=== PATIENT | female | born 1950 | race Caucasian/White ===

== ENCOUNTER 2022-03-29 07:29 | Day surgery (SDC) | payer MEDICARE, OTHER ==
[2022-03-27 15:12] LABS: COVID AG,FIA SOURCE NASAL SWAB
[~2022-03-29] VITALS: Ht 172.7 cm; Wt 75.0 kg
[~2022-03-29 07:29] MED LIST: CYCLOPENTOLATE HCL 1% 2 ML OPHTHALMIC SOLUTION ONE; KETOROLAC TROMETHAMINE 0.5% 5 ML OPHTHALMIC SOLUTION ONE; LOSA-382 PO; MONT-40 PO; PANT40TA54 PO; PHENYLEPHRINE HCL 2.5% 2 ML OPHTHALMIC SOLUTION ONE; RINGERS SOLUTION,LACTATED 500 ML IV ONE; ROSU10TA72 PO; TROPICAMIDE 1% 2 ML OPHTHALMIC SOLUTION ONE; [UNRECOGNIZED DRUG - CODE] TP
[2022-03-29] MEDS ORDERED: 0.9% SODIUM CHLORIDE 10 ML VIAL IRRIG ONE (07:30)
[2022-03-29] MEDS ORDERED: MIDAZOLAM HCL 2 MG/2 ML VIAL IVP ONE (07:30)
[2022-03-29] MEDS ORDERED: EPINEPHrine 1:1,000 [1 MG/ML] VIAL ET ONE (07:30)
[2022-03-29] MEDS ORDERED: METOPROLOL TARTRATE 5 MG/5 ML VIAL IVP ONE (07:30)
[2022-03-29] MEDS ORDERED: HYALURONATE SOD 8.5MG/0.85ML 10 MG/ML SYRINGE IO ONE (07:30)
[2022-03-29] MEDS ORDERED: BALANCED SALT 15 ML OPHTHALMIC IRRIG.SOLN IO ONE (07:30)
[2022-03-29] MEDS ORDERED: CHONDR SULF A SOD/HYALURONATE 1.05 ML KIT IO ONE (07:30)
[2022-03-29] MEDS ORDERED: POVIDONE-IODINE 5% 30 ML OPHTHALMIC SOLUTION OD ONE (07:30)
[2022-03-29] MEDS ORDERED: FentaNYL CITRATE PF 100 MCG/2 ML VIAL IVP ONE (07:30)
[2022-03-29] MEDS ORDERED: TETRACAINE HCL/PF 0.5% 4 ML OPHTHALMIC SOLUTION OD ONE (07:30)
[2022-03-29] MEDS ORDERED: NEOMYCIN/POLYMYXIN B/DEXAMETH 3.5 GM OPHTHALMIC OINTMENT OD ONE (07:30)
[2022-03-29] MEDS ORDERED: ACETYLCHOLINE CHLORIDE 1 EA INTRAOCULAR SOLUTION KIT IO ONE (07:30)
[2022-03-29] MEDS ORDERED: MethylPREDNISolone SOD SUCC 40 MG/ML VIAL IVP ONE (07:30)
[2022-03-29] MEDS ORDERED: AcetaZOLAMIDE SODIUM 500 MG VIAL IVP ONE (07:30)
[2022-03-29] MEDS ORDERED: LIDOCAINE/PF 1% 2 ML VIAL CAUDAL ONE (07:30)
[2022-03-29] MEDS ORDERED: HYALURONATE SOD/CHONDROITIN SOD 0.5 ML VIAL IO ONE (07:30)
[2022-03-29] MEDS: PHENYLEPHRINE HCL 2.5% 2 ML OPHTHALMIC SOLUTION OD SCH ×3 (08:19→08:34)
[2022-03-29] MEDS: CYCLOPENTOLATE HCL 1% 2 ML OPHTHALMIC SOLUTION OD SCH ×3 (08:19→08:33)
[2022-03-29] MEDS: KETOROLAC TROMETHAMINE 0.5% 5 ML OPHTHALMIC SOLUTION OD SCH ×3 (08:19→08:33)
[2022-03-29] MEDS: TROPICAMIDE 1% 2 ML OPHTHALMIC SOLUTION OD SCH ×3 (08:19→08:33)
[2022-03-29] MEDS ORDERED: RINGERS SOLUTION,LACTATED 500 ML IV ONE (10:00)
== END 2022-03-29 12:30 | disposition home or self-care (01) ==
LOC: SURGERY 07:29
PROVIDERS: ATTEND Ophthalmology
DX: E11.36 Type 2 diabetes mellitus with diabetic cataract (principal); H25.12 Age-related nuclear cataract, left eye; E78.00 Pure hypercholesterolemia, unspecified; Z88.0 Allergy status to penicillin; Z98.890 Other specified postprocedural states; Z79.899 Other long term (current) drug therapy; H27.112 Subluxation of lens, left eye; Z20.822 Contact with and (suspected) exposure to COVID-19
CPT/HCPCS: 93005; 87426; 66982; C9803; J1120; J0690; J0171; J3010; J3490 ×2; J2250; J2920; Q9967; J7120; V2632